=== PATIENT | female | born 1990 | race Caucasian/White ===

== ENCOUNTER 2023-11-14 00:51 | Emergency (ER) | payer SELFPAY ==
[2023-11-14] MEDS: Sulfamethoxazole/Trimethoprim 800-160 MG Tab PO ONE (02:00)
== END 2023-11-14 02:03 | disposition home or self-care (01) ==
LOC: MW.ED 00:51
DX: L03.113 Cellulitis of right upper limb (principal); Z91.013 Allergy to seafood
CPT/HCPCS: 81025; 99283; A9270